=== PATIENT | male | born 1945 | race Caucasian/White ===

== ENCOUNTER 2017-05-26 09:45 | Inpatient (IN) | payer OTHER ==
[~2017-05-26] VITALS: Ht 177.8 cm; Wt 92.0 kg
[~2017-05-26 09:45] MED LIST: ASCORBIC ACID100 MG PO; ASPIR 8181 M1 PO; ASPIR-LOW81 MG PO; CIPRO500 MG PO; FLAGYL500 MG PO; GEMFIBROZIL600 MG PO; LOPID600 MG PO; LORTAB 5-325 M1 EACH PO; SIMVASTATIN20 MG PO; XARELTO20 MG PO; ZOCOR20 MG PO
[2017-05-26 10:03] LABS: EOSINOPHIL COUNT 0.1 K/uL (0-0.3); HEMATOCRIT 44.3 % (38.0-50.0); IMMATURE GRANULOCYTE (%) 0.5 % (0.0-0.7); INSTRUMENT ABS NEUTROPHIL CT 2.3 K/uL; LYMPHOCYTE COUNT 1.4 K/uL (1.0-2.8); MCH 28.6 PG (29.0-34.0); MCHC 33.6 G/DL (30.0-36.0); MONOCYTE (%) 11.4 % (3-12); MONOCYTE COUNT 0.5 K/uL (0-0.8); NEUTROPHIL (%) 52.8 % (45-76); NEUTROPHIL COUNT 2.3 K/uL (1.8-6.4); PLATELET COUNT 158 K/uL (156-360); RBC DIS.WIDTH-CV 12.6 % (11.8-14.6); RBC DIS.WIDTH-SD 38.9 % (39-53); RED BLOOD COUNT 5.21 M/uL (4.00-5.50); WHITE BLOOD COUNT 4.3 K/uL (4.1-10.2)
[2017-05-26 10:07] LABS: CREATININE 1.1 mg/dL (0.6-1.3); POTASSIUM 4.9 mEq/L (3.7-5.4)
[2017-05-26 10:08] LABS: INTER. NORMALIZED RATIO 1.5; PROTHROMBIN TIME 16.5 SEC (10.2-12.9)
[2017-05-26 10:10] LABS: PTT 36.5 SEC (25-37)
[2017-05-26 10:13] LABS: AMYLASE 79 IU/L (1-118); CHLORIDE 107 mEq/L (99-109); POTASSIUM 4.9 mEq/L (3.7-5.4); SODIUM 139 mEq/L (136-147)
[2017-05-26 10:15] LABS: GLUCOSE 98 mg/dL (70-99)
[2017-05-26 10:17] LABS: ANION GAP 9 MEQ/L (2-14)
[2017-05-26 10:18] LABS: SERUM ETHYL ALCOHOL < 10 mg/dL
[2017-05-26 10:19] LABS: GFR ESTIMATE (CALCULATED) > 59 mL/min/
[2017-05-26 10:20] LABS: UREA NITROGEN (BUN) 14 mg/dL (9-23)
[2017-05-26 10:22] LABS: LIPASE 32 U/L (1.0-51.0)
[2017-05-26 10:23] LABS: TROP-I INTERPRETATION NEGATIVE; TROPONIN-I < 0.01 ng/mL (0.0-0.30)
[2017-05-26 11:04] LABS: ADD MIUA? NO; BILIRUBIN NEGATIVE; BLOOD NEGATIVE; GLUCOSE (STRIP) NEGATIVE; KETONES NEGATIVE; LEUKOCYTES NEGATIVE; NITRITE NEGATIVE; PROTEIN (STRIP) NEGATIVE; UCUL ADDED? NO; UROBILINOGEN 0.2 MG/DL (0.2-1.0)
[2017-05-26 11:05] LABS: COLOR LT. YELLOW ((YELLOW))
[2017-05-26 11:10] LABS: AMPHETAMINE NEGATIVE (500 ng/mL); BARBITURATES NEGATIVE (200 ng/mL); BENZODIAZEPINES NEGATIVE (150 ng/mL); COCAINE NEGATIVE (150 ng/mL); INTERNAL CONTROLS VALID? YES; METHADONE NEGATIVE (200 ng/mL); METHAMPHETAMINE NEGATIVE (500 ng/mL); OPIATES (MORPHINE) NEGATIVE (100 ng/mL); OXYCODONE NEGATIVE (100 ng/mL); PHENCYCLIDINE NEGATIVE (25 ng/mL); PROPOXYPHENE NEGATIVE (300 ng/mL); THC CANNABINOIDS NEGATIVE (50 ng/mL); TRICYCLIC ANTIDEPRESSANTS NEGATIVE (300 ng/mL)
[2017-05-26 13:00] LABS: FASTING STATUS NONFASTING
[2017-05-26] MEDS ORDERED: FIBER0.4 GM PO (13:57)
[2017-05-26 14:19] LABS: Estimated Average Glucose 111 mg/dL (70-123); HEMOGLOBIN A1c (GLYCOHEMOGLOB) 5.5 % HGB (Below 5.7)
[2017-05-26 14:24] LABS: HDL CHOLESTEROL 35 MG/DL (Desirable>=40); LDL CHOLESTEROL 80 mg/dL (Desirable<100); NON-HDL CHOLESTEROL 98 mg/dL (Desirable<160); TOTAL CHOLESTEROL 133 mg/dL (Desirable<200); TRIGLYCERIDES 91 MG/DL (Normal: <150)
[2017-05-26 14:34] VITALS: BP 122/77
[2017-05-26 19:35] VITALS: BP 129/76
[2017-05-26 23:47] VITALS: BP 108/67
[2017-05-27 03:42] VITALS: BP 114/74
[2017-05-27 08:37] VITALS: BP 132/66
[2017-05-27 12:21] VITALS: BP 135/70
[2017-05-27 17:07] VITALS: BP 144/78
[2017-05-27 19:36] VITALS: BP 142/72
[2017-05-27 23:34] VITALS: BP 158/76
[2017-05-28 03:48] VITALS: BP 147/82
[2017-05-28 07:35] VITALS: BP 134/70
[2017-05-28 11:22] VITALS: BP 106/73
[2017-05-28] MEDS ORDERED: ASPIRIN EC325 MG PO (11:36)
== END 2017-05-28 14:35 | disposition home health service (06) | DRG 66 ==
LOC: EME → EDBD 09:45 → 5SOUTH 12:15 → ENRESERV 12:15 → EDOF 12:15 → ENRESERV 12:23 → 5SOUTH 14:32
PROVIDERS: Emergency Medicine; Internal Medicine
DX: I63.9 Cerebral infarction, unspecified (principal); R47.01 Aphasia; H53.8 Other visual disturbances; R29.702 NIHSS score 2; I48.0 Paroxysmal atrial fibrillation; E78.2 Mixed hyperlipidemia; Z79.01 Long term (current) use of anticoagulants; Z86.73 Personal history of transient ischemic attack (TIA), and cerebral infarction without residual deficits; Z82.49 Family history of ischemic heart disease and other diseases of the circulatory system; Z82.3 Family history of stroke
CPT/HCPCS: 70450; 70544; 70549; 70551; 80047; 80048; 80048 91; 80061; 81003; 82150; 83036; 83690; 84484; 85025; 85025 91; 85610; 85730; 86850; 86900; 86901; 90686; 92523 GN; 92610 GN; 93005; 93306; 93880; 99281; 99285; G0480; J7030